=== PATIENT | female | born 1960 | race Caucasian/White ===

== ENCOUNTER 2024-10-09 09:54 | Emergency (ER) | payer MEDICARE, BC, SELFPAY ==
[2024-10-09 10:05] VITALS: BP 128/88; PULSE 90; RESP 16; TEMP 36.7; O2SAT 95
[2024-10-09 10:51] LABS: Strep A DNA Probe* NOT DETECTED (Not Detectd)
[2024-10-09 11:04] LABS: PCR FLU A POSITIVE PCR FLU A (Negative); PCR FLU B Negative PCR FLU B (Negative); PCR RSV Negative PCR RSV (Negative); SARS PCR* Negative SARS-CoV-2 (Negative)
--- NOTE | 2024-10-09 11:17 | ED.GENADULT ---
HPI - General Adult General Chief complaint: Sore Throat Stated complaint: sore throat/cough Time Seen by Provider: 10/09/24 10:30 Source: patient Mode of arrival: ambulatory Limitations: no limitations History of Present Illness HPI narrative: 64-year-old female, generally healthy, presents today with feeling unwell for the last 3 days. Patient complains of cough, fever, sore throat and body aches. Decreased appetite. Denies diarrhea, chest pain or abdominal pain. Cough is nonproductive. Patient just got back from [place] about a week ago. Related Data Allergies Allergy/AdvReac Type Severity Reaction Status Date / Time No Known Drug Allergies Allergy Verified 10/09/24 10:11 Review of Systems Status of ROS: Reports: 10 or more systems reviewed and unremarkable except as noted in History and below [facility] Medical History Difficulty with CPAP nasal mask use ?Z78.9 - Other specified health status (ICD-10) Anxiety and depression ?F41.9 - Anxiety disorder, unspecified (ICD-10) ?F32.A - Depression, unspecified (ICD-10) Social History Smoking Status: Never smoker Do you use any of these nicotine containing products: None How often do you have a drink containing alcohol: never AUDIT-C Alcohol total score: 0 Non-prescribed substance use: denies use service: No Exam Narrative: Exam Narrative: Well-nourished well-developed patient in no acute distress. Alert and oriented. Answers questions appropriately. Mood and affect are appropriate. Thoughts are goal oriented and rational. No tangential or magical thinking noted. Patient speaks in full sentences without needing to catch her breath. Sounds congested. HEENT: Normocephalic atraumatic. Pupils are equally round reactive to light. Extraocular muscles are intact. Conjunctivae are moist without any icterus noted. Moist mucous membranes. Posterior pharynx is normal. Neck is soft without any lymphadenopathy or thyromegaly. No masses are appreciated. Cardiovascular: Heart is regular rate and rhythm S1 and S2 are present without any murmurs. Lungs: Clear to auscultation bilaterally no wheezes rhonchi or rales are appreciated. Patient takes deep breaths without any discomfort. The skin: Well perfused. Const: Vital Signs, click to edit/add: Vital Signs - 24 hr 10/09/24 10:05 Temperature 98.0 F Pulse Rate [Pulse Oximeter] 90 Respiratory Rate 16 Blood Pressure [Ri ght Upper Arm] 128/88 Pulse Oximetry 95 Oxygen Delivery Me thod Room Air Course Course ED Course: Triple swab positive for influenza A. Negative strep. Vital Signs Vital signs: Initial Vital Signs Temperature 98.0 F 10/09/24 10:05 Temperature Source Temporal Artery Scan 10/09/24 10:05 Pulse Rate 90 10/09/24 10:05 Respiratory Rate 16 10/09/24 10:05 Blood Pressure 128/88 10/09/24 10:05 Blood Pressure Mean 101 10/09/24 10:05 Blood Pressure Position Sitting 10/09/24 10:05 Pulse Oximetry 95 10/09/24 10:05 Oxygen Delivery Method Room Air 10/09/24 10:05 Vital Signs Temperature 98.0 F 10/09/24 10:05 Pulse Rate 90 10/09/24 10:05 Respiratory Rate 16 10/09/24 10:05 Blood Pressure 128/88 10/09/24 10:05 Pulse Oximetry 95 10/09/24 10:05 Oxygen Delivery Method Room Air 10/09/24 10:05 Temperature 98.0 F 10/09/24 10:05 Pulse Rate 90 10/09/24 10:05 Respiratory Rate 16 10/09/24 10:05 Blood Pressure 128/88 10/09/24 10:05 Pulse Oximetry 95 10/09/24 10:05 Oxygen Delivery Method Room Air 10/09/24 10:05 Medical Decision Making [facility] Narrative Medical decision making narrative: 64-year-old female with influenza. We discussed using Tamiflu which patient is not wish to do at this time. We discussed symptomatic treatment and reasons for follow-up. Lab Data Lab results reviewed: Yes I reviewed the patient's lab results Labs: Lab Results 10/09/24 Range/Units Unknown SARS-CoV-2 (PCR) Negative SARS-CoV-2 (Negative) Influenza Type A (PCR) POSITIVE PCR FLU A A (Negative) Influenza Type B (PCR) Negative PCR FLU B (Negative) RSV (PCR) Negative PCR RSV (Negative) Group A Strep DNA NOT DETECTED (Not Detectd) Discharge Plan Discharge Clinical Impression: Influenza A Instructions: Influenza (ED) Additional Instructions: You can take up to 1000 mg of Tylenol 3 times per day and-or ibuprofen up to 800 mg 3 times per day. Always take the ibuprofen with food or with a daily omeprazole tablet which decreases the amount of acid in your stomach. Wear a mask when in public. Follow Up/Referrals: Svetlana Fink [Primary Care Provider] - Stand Alone Forms: Svbtle Info Instructions
== END 2024-10-09 11:33 | disposition home or self-care (01) ==
PROVIDERS: Emergency Provider Family Medicine; PCP Internal Medicine
DX: J10.1 Influenza due to other identified influenza virus with other respiratory manifestations (principal)
CPT/HCPCS: 87631; 87651; 99282; 99283; 99284